=== PATIENT | female | born 1995 | race Two or more races ===

== ENCOUNTER → 2024-03-02 | Outpatient (CLI) | payer BC, SELFPAY ==
--- NOTE | 2024-03-02 12:32 | XR_ITS ---
Examination: Breast ultrasound, unilateral, left complete INDICATIONS: Patient states palpable lump with pain redness left breast 2:00 position retroareolar 2 months with axillary swelling Date and time of exam: March 02, 2024 1243 hours Technique: Real-time cueva scale ultrasonographic imaging performed left breast including all 4 quadrants as well as nipple retroareolar and axillary region. Findings: 12:00 oval mass indistinct margins 15 x 16 mm 1:00 cystic solid mass indistinct margins 3.0 x 3.2 cm Abnormal axillary lymph nodes 3.8 x 4.4 cm 2.3 x 1.6 cm with additional smaller nodes IMPRESSION: BI-RADS Category 4: Suspicious for malignancy Suspicious masses 12:00 1:00 position left breast, biopsy of these masses as well as abnormal lymph nodes are needed to exclude breast carcinoma Recommend diagnostic mammography follow-up
== END | disposition home or self-care (01) ==
PROVIDERS: PCP Physician Assistant; Referring Provider Physician Assistant; Visit Provider Physician Assistant
DX: N63.25 Unspecified lump in the left breast, overlapping quadrants (principal); N63.21 Unspecified lump in the left breast, upper outer quadrant
CPT/HCPCS: 76641